=== PATIENT | female | born 1975 | race Caucasian/White ===

== ENCOUNTER 2016-06-11 16:20 | Emergency (ER) | payer OTHER ==
[2016-06-11] MEDS ORDERED: PROMETHAZINE HCL 25 MG TABLET PO ONE (17:24)
[2016-06-11] MEDS ORDERED: IBUPROFEN 600 MG TABLET PO ONE (17:25)
[2016-06-11] MEDS ORDERED: HYDROMORPHONE HCL 2 MG TABLET PO ONE (17:25)
--- NOTE | 2016-06-11 17:31 | ER Document Report ---
ED Medical Screen (RME) - General Chief Complaint: Abdominal Pain Stated Complaint: ABDOMINAL PAIN Notes: Patient says that she's been having problems with a UTI for a couple of weeks. She had burning and discomfort and urgency urination and went to a local urgent care on May 30. She was diagnosed with UTI and given a prescription for an antibiotic to take twice a day for 3 days. She finished the antibiotic and her symptoms improved, but today, she went to the restroom. She noted some burning with urination on Tuesday and then today she was walking along, when she was suddenly hit with a pain in the right lower pelvic region which "dropped me to my knees". She is still complaining of severe pain in that right lower pelvic region. Patient is not aware of any fever. Has not had any vomiting or diarrhea. LMP May 22. On no control. PMH: Hypertension, NIDDM, no surgeries. TRAVEL OUTSIDE OF THE [place] IN LAST 30 DAYS: No - Related Data Allergies/Adverse Reactions: No Known Allergies Allergy (Verified 06/11/16 16:24) Past Medical History - Past Medical History Cardiac Medical History: Reports: Hx Hypertension Endocrine Medical History: Denies: Hx Diabetes Mellitus Type 2 Renal/ Medical History: Denies: Hx Ovarian Cysts, Hx Peritoneal Dialysis GI Medical History: Reports: Hx Gastroesophageal Reflux Disease Past Surgical History: Reports: Hx Tonsillectomy - Immunizations Immunizations up to date: Yes Hx Diphtheria, Pertussis, Tetanus Vaccination: Yes Physical Exam - Vital signs Vitals: Temp Pulse Resp BP Pulse Ox 97.8 F 98 20 161/89 H 95 06/11/16 16:25 06/11/16 16:25 06/11/16 16:25 06/11/16 16:25 06/11/16 16:25 Course - Vital Signs Vital signs: Temp Pulse Resp BP Pulse Ox 97.8 F 98 20 161/89 H 95 06/11/16 16:25 06/11/16 16:25 06/11/16 16:25 06/11/16 16:25 06/11/16 16:25
[2016-06-11 17:46] LABS: ABSOLUTE BASOPHILS # (AUTO) 0.1 10^3/uL (0.0-0.2); ABSOLUTE EOSINOPHILS # (AUTO) 0.1 10^3/uL (0.0-0.6); ABSOLUTE LYMPHOCYTES (AUTO) 1.4 10^3/uL (0.5-4.7); ABSOLUTE MONOCYTES (AUTO) 0.5 10^3/uL (0.1-1.4); ABSOLUTE NEUT (AUTO) 8.5 10^3/uL (1.7-8.2); BASOPHILS % (AUTO) 1.2 % (0-2); EOSINOPHILS % (AUTO) 0.7 % (0-6); HEMATOCRIT 42.9 % (36.0-47.0); HEMOGLOBIN 14.3 g/dL (12.0-15.5); LYMPHOCYTES % (AUTO) 13.2 % (13-45); MEAN CORPUSCULAR HEMOGLOBIN 28.8 pg (27.0-33.4); MEAN CORPUSCULAR HGB CONC 33.3 g/dL (32.0-36.0); MEAN CORPUSCULAR VOLUME 86 fl (80-97); MONOCYTES % (AUTO) 4.9 % (3-13); RED BLOOD COUNT 4.97 10^6/uL (3.72-5.28); RED CELL DISTRIBUTION WIDTH 13.8 % (11.5-14.0); WHITE BLOOD COUNT 10.7 10^3/uL (4.0-10.5)
[2016-06-11 18:04] LABS: ALANINE AMINOTRANSFERASE 94 U/L (9-52); ALBUMIN 4.2 g/dL (3.5-5.0); ALKALINE PHOSPHATASE 123 U/L (38-126); ANION GAP 12 (5-19); ASPARTATE AMINO TRANSFERASE 81 U/L (14-36); BILIRUBIN,DIRECT 0.3 mg/dL (0.0-0.4); BILIRUBIN,TOTAL 0.8 mg/dL (0.2-1.3); BLOOD UREA NITROGEN 13 mg/dL (7-20); CALCIUM 9.8 mg/dL (8.4-10.2); CARBON DIOXIDE 28 mmol/L (22-30); CHLORIDE 102 mmol/L (98-107); CREATININE RESULT 0.62 mg/dL (0.52-1.25); GLUCOSE 194 mg/dL (75-110); LIPASE 458.1 U/L (23-300); POTASSIUM 4.2 mmol/L (3.6-5.0); SODIUM 142.3 mmol/L (137-145); TOTAL PROTEIN 7.8 g/dL (6.3-8.2)
[2016-06-11 18:26] LABS: AMORPHOUS SEDIMENT,URINE TRACE /HPF; APPEARANCE,URINE SLIGHTLY-CLOUDY; BILIRUBIN,URINE NEGATIVE (NEGATIVE); GLUCOSE, URINE NEGATIVE (NEGATIVE); KETONES,URINE NEGATIVE (NEGATIVE); LEUKOCYTE ESTERASE,URINE TRACE (NEGATIVE); NITRITE,URINE NEGATIVE (NEGATIVE); PROTEIN,URINE 30 mg/dL (NEGATIVE); URINE SPECIFIC GRAVITY 1.029; UROBILINOGEN,URINE NEGATIVE mg/dL (<2.0)
[2016-06-11] MEDS ORDERED: MORPHINE SULFATE 10 MG/ML INJ IV PRN (18:58)
[2016-06-11] MEDS ORDERED: KETOROLAC TROMETHAMINE INJ/PF 30 MG/1 ML SDV IV ONE (18:58)
--- NOTE | 2016-06-11 19:02 | ER Document Report ---
ED General - General Chief Complaint: Abdominal Pain Stated Complaint: ABDOMINAL PAIN Notes: Patient is a 40-year-old female with past medical history of morbid obesity and hypertension who presents with concerns of acute onset of right adnexal pain. States that she was treated for urinary tract infection several days ago and had resolution of her dysuria and suprapubic pain. However, states today she had an acute onset of focal right adnexal pain that she describes as severe, stabbing and constant. Nothing improves or worsens the pain. She denies any history of similar symptoms in the past. No prior history of nephrolithiasis, ovarian torsion. Her last menstrual period was the beginning of this month. She notes associated nausea without vomiting. No diarrhea, chest pain or shortness of breath. She has no prior abdominal surgeries. She denies any ongoing dysuria. She has not seen her primary care doctor regarding today's concerns. TRAVEL OUTSIDE OF THE [place] IN LAST 30 DAYS: No - Related Data Allergies/Adverse Reactions: No Known Allergies Allergy (Verified 06/11/16 16:24) Past Medical History - General Information source: Patient - Social History Smoking Status: Never Smoker Chew tobacco use (# tins/day): No Frequency of alcohol use: None Drug Abuse: None Lives with: Spouse/Significant other Family History: Hypertension Patient has suicidal ideation: No Patient has homicidal ideation: No - Past Medical History Cardiac Medical History: Reports: Hx Hypertension Endocrine Medical History: Reports: Hx Diabetes Mellitus Type 2 Renal/ Medical History: Denies: Hx Ovarian Cysts, Hx Peritoneal Dialysis GI Medical History: Reports: Hx Gastroesophageal Reflux Disease Past Surgical History: Reports: Hx Tonsillectomy - Immunizations Immunizations up to date: Yes Hx Diphtheria, Pertussis, Tetanus Vaccination: Yes Hx Pneumococcal Vaccination: 03/07/09 Review of Systems - Review of Systems Notes: Constitutional: Negative for fever. HENT: Negative for sore throat. Eyes: Negative for visual changes. Cardiovascular: Negative for chest pain. Respiratory: Negative for shortness of breath. Gastrointestinal: Positive for abdominal pain and nausea Genitourinary: Negative for dysuria. Musculoskeletal: Negative for back pain. Skin: Negative for rash. Neurological: Negative for headaches, weakness or numbness. 10 point ROS negative except as marked above and in HPI. Physical Exam - Vital signs Vitals: Temp Pulse Resp BP Pulse Ox 97.8 F 98 20 161/89 H 95 04/07/17 16:25 06/11/16 16:25 06/11/16 16:25 06/11/16 16:25 06/11/16 16:25 Interpretation: Hypertensive Notes: PHYSICAL EXAMINATION: GENERAL: Appears uncomfortable and in pain. Morbidly obese. HEAD: Atraumatic, normocephalic. EYES: Pupils equal round and reactive to light, extraocular movements intact, sclera anicteric, conjunctiva are normal. ENT: nares patent, oropharynx clear without exudates. Moist mucous membranes. NECK: Normal range of motion, supple without lymphadenopathy LUNGS: Breath sounds clear to auscultation bilaterally and equal. No wheezes rales or rhonchi. HEART: Regular rate and rhythm without murmurs ABDOMEN: Morbidly obese abdomen. Soft, focal right adnexal tenderness, normoactive bowel sounds. No guarding, no rebound. No masses appreciated. EXTREMITIES: Normal range of motion, no pitting or edema. No cyanosis. NEUROLOGICAL: No focal neurological deficits. Moves all extremities spontaneously and on command. PSYCH: Normal mood, normal affect. SKIN: Warm, Dry, normal turgor, no rashes or lesions noted. Course - Re-evaluation Re-evalutation: 06/11/16 19:01 Patient presents with acute onset of focal right lower adnexal tenderness on exam. Her abdominal exam is limited secondary to her morbid obesity with a BMI of 60. However, patient does have focal adnexal tenderness at time of palpation without any focal right lower quadrant tenderness. She has no right CVA tenderness. Urinalysis does show hematuria but is otherwise unremarkable. Primary concern at this time would be ovarian torsion. I have asked for a stat transvaginal ultrasound to better assess. Ultrasound was directly called and asked transfer this patient immediately for this ultrasound. If this demonstrates good flow to the right ovary will plan for a CT without contrast of the abdomen and pelvis of nephrolithiasis given her hematuria and the abrupt onset and severity of her pain. 06/11/16 22:04 Patient has had resolution of her abdominal pain at this time. Transvaginal ultrasound demonstrates flow to the right ovary and no obvious mass although it is a limited study secondary to patient's morbid obesity. A CT scan of the abdomen and pelvis without contrast was performed to evaluate for acute nephrolithiasis and was normal. Repeat abdominal exam now at this time without any focal tenderness. Again her history is not clinically consistent with acute appendicitis given the abrupt onset of her pain. Urinalysis is not consistent with acute pyelonephritis or an acute infection. I have instructed the patient to follow-up with her primary care doctor in the morning for recheck of her abdomen. I have reviewed with her that at this time not certain of the exact cause for her abdominal pain and that she should return to the emergency department immediately should she have recurrence of this pain, vomiting, fever or any other symptoms that are worrisome to her. - Vital Signs Vital signs: Temp Pulse Resp BP Pulse Ox 97.8 F 98 20 161/89 H 95 06/11/16 16:25 06/11/16 16:25 06/11/16 16:25 06/11/16 16:25 06/11/16 16:25 - Laboratory Result Diagrams: 06/11/16 17:30 06/11/16 17:30 Laboratory results interpreted by me: 06/11/16 06/11/16 06/11/16 17:30 17:30 17:30 WBC 10.7 H Seg Neutrophils % 80.0 H Absolute Neutrophils 8.5 H Glucose 194 H AST 81 H ALT 94 H Lipase 458.1 H Urine Protein 30 H Urine Blood LARGE H Ur Leukocyte Esterase TRACE H Discharge - Discharge Clinical Impression: Right sided abdominal pain Condition: Good Disposition: HOME, SELF-CARE Instructions: Observation for Appendicitis ([facility]) Additional Instructions: You have been seen in the Emergency Department (ED) for abdominal pain. Your evaluation did not identify a clear cause of your symptoms but was generally reassuring. Please follow up with your doctor as soon as possible regarding today's emergent visit and the symptoms that are bothering you. Return to the ED if your abdominal pain worsens or fails to improve, you develop bloody vomiting, bloody diarrhea, you are unable to tolerate fluids due to vomiting, fever greater than 101, or other symptoms that concern you. Referrals: SHADY ESPINO MD [Primary Care Provider] - Follow up tomorrow
[2016-06-11 22:38] VITALS: BP 149/82
== END 2016-06-11 22:27 | disposition home or self-care (01) ==
LOC: ER 16:20
DX: R10.9 Unspecified abdominal pain (principal); E66.01 Morbid (severe) obesity due to excess calories; I10 Essential (primary) hypertension; E11.9 Type 2 diabetes mellitus without complications; K21.9 Gastro-esophageal reflux disease without esophagitis; Z68.44 Body mass index [BMI] 60.0-69.9, adult
CPT/HCPCS: 99284; 96374; 96375; 36415; 83690; 84703; 85025; 80053; 81001; 76830; 93976; 74176; J1885; J2270

== ENCOUNTER → 2016-07-01 | Outpatient (CLI) | payer OTHER ==
[2016-07-01 11:43] LABS: ALANINE AMINOTRANSFERASE 53 U/L (9-52); ALBUMIN 3.9 g/dL (3.5-5.0); ALKALINE PHOSPHATASE 101 U/L (38-126); ANION GAP 12 (5-19); ASPARTATE AMINO TRANSFERASE 47 U/L (14-36); BILIRUBIN,DIRECT 0.4 mg/dL (0.0-0.4); BILIRUBIN,TOTAL 1.2 mg/dL (0.2-1.3); BLOOD UREA NITROGEN 12 mg/dL (7-20); CALCIUM 9.5 mg/dL (8.4-10.2); CARBON DIOXIDE 30 mmol/L (22-30); CHLORIDE 101 mmol/L (98-107); CREATININE RESULT 0.63 mg/dL (0.52-1.25); Direct HDL 62 mg/dL (>40); GLUCOSE 113 mg/dL (75-110); POTASSIUM 4.1 mmol/L (3.6-5.0); SODIUM 142.8 mmol/L (137-145); TOTAL PROTEIN 7.4 g/dL (6.3-8.2); TRIGLYCERIDES 83 mg/dL (<150)
[2016-07-01 11:54] LABS: DIRECT LDL 93 mg/dL (<100)
== END ==
LOC: OD 10:05
PROVIDERS: ATTEND Internal Medicine
DX: E11.9 Type 2 diabetes mellitus without complications (principal); E78.00 Pure hypercholesterolemia, unspecified
CPT/HCPCS: 36415; 80053; 80061

== ENCOUNTER 2016-11-24 05:00 | Emergency (ER) | payer OTHER ==
[2016-11-24 05:45] LABS: APPEARANCE,URINE SLIGHTLY-CLOUDY; BILIRUBIN,URINE NEGATIVE (NEGATIVE); GLUCOSE, URINE 50 mg/dL (NEGATIVE); KETONES,URINE NEGATIVE (NEGATIVE); LEUKOCYTE ESTERASE,URINE NEGATIVE (NEGATIVE); NITRITE,URINE NEGATIVE (NEGATIVE); PROTEIN,URINE 100 mg/dL (NEGATIVE); URINE SPECIFIC GRAVITY 1.005; UROBILINOGEN,URINE NEGATIVE mg/dL (<2.0)
[2016-11-24 05:54] LABS: ABSOLUTE BASOPHILS # (AUTO) 0.1 10^3/uL (0.0-0.2); ABSOLUTE EOSINOPHILS # (AUTO) 0.1 10^3/uL (0.0-0.6); ABSOLUTE LYMPHOCYTES (AUTO) 1.3 10^3/uL (0.5-4.7); ABSOLUTE MONOCYTES (AUTO) 0.4 10^3/uL (0.1-1.4); ABSOLUTE NEUT (AUTO) 5.9 10^3/uL (1.7-8.2); BASOPHILS % (AUTO) 0.8 % (0-2); EOSINOPHILS % (AUTO) 1.3 % (0-6); HEMATOCRIT 37.9 % (36.0-47.0); HEMOGLOBIN 13.1 g/dL (12.0-15.5); HGB HCT DIFFERENCE 1.4; LYMPHOCYTES % (AUTO) 16.7 % (13-45); MEAN CORPUSCULAR HEMOGLOBIN 29.9 pg (27.0-33.4); MEAN CORPUSCULAR HGB CONC 34.4 g/dL (32.0-36.0); MEAN CORPUSCULAR VOLUME 87 fl (80-97); MONOCYTES % (AUTO) 5.7 % (3-13); RED BLOOD COUNT 4.36 10^6/uL (3.72-5.28); RED CELL DISTRIBUTION WIDTH 14.4 % (11.5-14.0); SEGMENTED NEUTROPHILS % (AUTO) 75.5 % (42-78); WHITE BLOOD COUNT 7.8 10^3/uL (4.0-10.5)
[2016-11-24 06:19] LABS: ALANINE AMINOTRANSFERASE 32 U/L (9-52); ALBUMIN 3.8 g/dL (3.5-5.0); ALKALINE PHOSPHATASE 84 U/L (38-126); ANION GAP 12 (5-19); ASPARTATE AMINO TRANSFERASE 26 U/L (14-36); BILIRUBIN,DIRECT 0.3 mg/dL (0.0-0.4); BILIRUBIN,TOTAL 0.8 mg/dL (0.2-1.3); BLOOD UREA NITROGEN 13 mg/dL (7-20); CALCIUM 9.5 mg/dL (8.4-10.2); CARBON DIOXIDE 27 mmol/L (22-30); CHLORIDE 102 mmol/L (98-107); CREATININE RESULT 0.61 mg/dL (0.52-1.25); GLUCOSE 161 mg/dL (75-110); SODIUM 140.8 mmol/L (137-145); TOTAL PROTEIN 6.8 g/dL (6.3-8.2)
[2016-11-24] MEDS ORDERED: KETOROLAC TROMETHAMINE INJ/PF 30 MG/1 ML SDV IV ONE (06:47)
[2016-11-24] MEDS ORDERED: ONDANSETRON HCL INJ/PF 4 MG/2 ML SDV IV ONE (06:47)
[2016-11-24] MEDS ORDERED: NORMAL SALINE 1000 ML 1,000 ML IV ONE ×2 (06:47→08:34)
--- NOTE | 2016-11-24 07:02 | ER Document Report ---
ED GI/ - General Information source: Patient TRAVEL OUTSIDE OF THE [place] IN LAST 30 DAYS: No - HPI Patient complains to provider of: No: Abdominal pain Associated symptoms: Other - see above <ASHLEY INGRAM - Last Filed: 11/24/16 11:17> <NAHEED OTERO - Last Filed: 11/24/16 15:05> - General Chief Complaint: Nausea/Vomiting/Diarrhea Stated Complaint: LOWER BACK PAIN Time Seen by Provider: 11/24/16 06:46 Notes: Patient is a 41 year old female with a history of diabetes and hypertension who presents to the ED with complaints of nausea, vomiting diarrhea and right side back pain. Patient states the back pain started 2 days ago when she woke up. She denies dysuria or abdominal pain. She had a fever on Tuesday but has had one since. Patient states she has not been able to keep her medication down this morning. She last checked her blood sugar at 0145 and and it was 155. She is currently on her menstrual period (ASHLEY INGRAM) - Related Data Allergies/Adverse Reactions: No Known Allergies Allergy (Verified 11/24/16 05:08) Past Medical History - General Information source: Patient - Social History Smoking Status: Unknown if Ever Smoked Family History: Hypertension Patient has suicidal ideation: No Patient has homicidal ideation: No - Past Medical History Cardiac Medical History: Reports: Hx Hypertension Endocrine Medical History: Reports: Hx Diabetes Mellitus Type 2 GI Medical History: Reports: Hx Gastroesophageal Reflux Disease Past Surgical History: Reports: Hx Tonsillectomy - Immunizations Immunizations up to date: Yes Hx Diphtheria, Pertussis, Tetanus Vaccination: Yes Hx Pneumococcal Vaccination: 03/07/09 <ASHLEY INGRAM - Last Filed: 11/24/16 11:17> Review of Systems - Review of Systems Constitutional: See HPI. denies: Fever EENT: No symptoms reported Cardiovascular: No symptoms reported Respiratory: No symptoms reported Gastrointestinal: See HPI, Diarrhea, Nausea, Vomiting. denies: Abdominal pain Genitourinary: See HPI. denies: Dysuria Female Genitourinary: No symptoms reported, Last menstrual period - currently Musculoskeletal: See HPI, Joint pain Skin: No symptoms reported Hematologic/Lymphatic: No symptoms reported Neurological/Psychological: No symptoms reported <ASHLEY INGRAM - Last Filed: 11/24/16 11:17> Physical Exam - General General appearance: Alert, Other - apperas uncomfortable - HEENT Head: Normocephalic, Atraumatic Eyes: Normal Extraocular movements intact: Yes Pupils: PERRL Mucous membranes: Dry - Respiratory Respiratory status: No respiratory distress Breath sounds: Normal - Cardiovascular Rhythm: Regular Heart sounds: Normal auscultation Murmur: No - Abdominal Inspection: Normal Distension: No distension Tenderness: Nontender - Back Back: CVA tenderness - right CVA tenderness - Extremities General upper extremity: Normal inspection, Normal ROM General lower extremity: Normal inspection, Normal ROM - Neurological Neuro grossly intact: Yes - Psychological Associated symptoms: Normal affect, Normal mood - Skin Skin Temperature: Warm Skin Moisture: Dry Skin Color: Normal <ASHLEY INGRAM - Last Filed: 11/24/16 11:17> - Vital signs Vitals: Temp Pulse Resp BP Pulse Ox 98.4 F 80 20 141/75 H 98 11/24/16 05:07 11/24/16 05:07 11/24/16 05:07 11/24/16 05:07 11/24/16 05:07 Course - Laboratory Result Diagrams: 11/24/16 05:45 11/24/16 05:45 <ASHLEY INGRAM - Last Filed: 11/24/16 11:17> - Laboratory Result Diagrams: 11/24/16 05:45 11/24/16 05:45 - Diagnostic Test Radiology reviewed: Reports reviewed <NAHEED OTERO - Last Filed: 11/24/16 15:05> - Re-evaluation Re-evalutation: 11/24/16 Patient is a 41-year-old female who presents with nausea, vomiting, diarrhea and back pain. Patient feels better after fluids and medication. Able to tolerate p.o. No acute findings on CT. Patient does have her period which explains the blood in her urine. Feels better. Stable for discharge. Follow- up with PMD. Return if any worsening or concerning symptoms. (NAHEED OTERO) - Vital Signs Vital signs: Temp Pulse Resp BP Pulse Ox 98.0 F 78 18 142/76 H 99 11/24/16 09:17 11/24/16 09:17 11/24/16 09:17 11/24/16 09:17 11/24/16 09:17 - Laboratory Laboratory results interpreted by me: 11/24/16 11/24/16 11/24/16 05:15 05:45 05:45 RDW 14.4 H Glucose 161 H Urine Protein 100 H Urine Glucose (UA) 50 H Urine Blood LARGE H Discharge <ASHLEY INGRAM - Last Filed: 11/24/16 11:17> <NAHEED OTERO - Last Filed: 11/24/16 15:05> - Discharge Clinical Impression: Vomiting Qualifiers: Vomiting type: unspecified Vomiting Intractability: unspecified Nausea presence : with nausea Qualified Code(s): R11.2 - Nausea with vomiting, unspecified Diarrhea Qualifiers: Diarrhea type: unspecified type Qualified Code(s): R19.7 - Diarrhea, unspecified Condition: Stable Disposition: HOME, SELF-CARE Instructions: Diarrhea, Nonspecific ([facility]), Vomiting ([facility]) Prescriptions: Ondansetron [Zofran Odt 4 mg Tablet] 1 tab PO Q6HP PRN #15 tab.rapdis PRN Reason: For Nausea/Vomiting Forms: Return to Work Referrals: SHADY ESPINO MD [Primary Care Provider] - Follow up as needed Scribe Attestation: 11/24/16 15:05 I personally performed the services described in the documentation, reviewed and edited the documentation which was dictated to the scribe in my presence, and it accurately records my words and actions. (NAHEED OTERO) Scribe Documentation - Scribe Written by Sumae:: braydon Gabriel, 11/24/2016, 0735 acting as scribe for :: Scooter <ASHLEY INGRAM - Last Filed: 11/24/16 11:17>
--- NOTE | 2016-11-24 07:37 | RADIOLOGY REPORT (SQ) ---
EXAM DESCRIPTION: CT LTD RENAL STONE PROTOCOL ON COMPLETED DATE/TIME: 11/24/2016 7:20 am REASON FOR STUDY: evalaute for kidney stone COMPARISON: 04/13/2015. TECHNIQUE: CT scan of the abdomen and pelvis performed without intravenous or oral contrast. Images reviewed with lung, soft tissue, and bone windows. Reconstructed coronal and sagittal MPR images revi ewed. All images stored on PACS. All CT scanners at this facility use dose modulation, iterative reconstruction, and/or weight based d osing when appropriate to reduce radiation dose to as low as reasonably achievable (ALARA). [facility]: Dose Right [facility]: CareDose [facility]: Dose Right [facility]: Teradose 4D [facility]: [employer] RADIATION DOSE: Up-to-date CT equipment and radiation dose reduction techniques were employed. CTDIv ol: 19.2 mGy. DLP: 1135 mGy-cm.mGy. LIMITATIONS: None. FINDINGS: LOWER CHEST: Small emphysematous cysts of the left lower lobe. No nodules or infiltrates. NON-CONTRASTED LIVER, SPLEEN, ADRENALS: Evaluation limited by lack of IV contrast. No identified sign ificant masses. PANCREAS: No masses. No peripancreatic inflammatory changes. GALLBLADDER: No identified stones by CT criteria. No inflammatory changes to suggest cholecystitis. RIGHT KIDNEY AND URETER: No suspicious masses. Assessment limited by lack of IV contrast. No signif icant calcifications. No hydronephrosis or hydroureter. LEFT KIDNEY AND URETER: No suspicious masses. Assessment limited by lack of IV contrast. No signifi cant calcifications. No hydronephrosis or hydroureter. AORTA AND RETROPERITONEUM: No aneurysm. No retroperitoneal masses or adenopathy. BOWEL AND PERITONEAL CAVITY: No obvious masses or inflammatory changes. No free fluid. APPENDIX: Normal. PELVIS, BLADDER, AND ABDOMINAL WALL:7.1 cm umbilical fat only herniation, chronic. No free fluid. Bl adder normal. BONES: Moderate L5-S1 disc desiccation. Mild -moderate lower thoracic disc desiccation. OTHER: No other significant finding. IMPRESSION: No acute findings. 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 COMMENT: Quality ID # [id number]: Final reports with documentation of one or more dose reduction techniques (e.g., Automated exposure control, adjustment of the mA and/or kV according to patient size, use of iterative reconstruction technique) TECHNICAL DOCUMENTATION: JOB ID: [id number] [employer]- All Rights Reserved
[2016-11-24] MEDS ORDERED: MORPHINE SULFATE 10 MG/ML INJ IV ONE (08:24)
[2016-11-24 09:18] VITALS: BP 142/76
== END 2016-11-24 09:17 | disposition home or self-care (01) ==
LOC: ER 05:00
DX: R11.2 Nausea with vomiting, unspecified (principal); R19.7 Diarrhea, unspecified; M54.5 Low back pain; E11.9 Type 2 diabetes mellitus without complications; I10 Essential (primary) hypertension; M54.9 Dorsalgia, unspecified; R50.9 Fever, unspecified
CPT/HCPCS: 99284; 96361; 96374; 96375; 36415; 87086; 84703; 85025; 80053; 81001; 76380; J1885; J2270; J2405; J7030

== ENCOUNTER → 2018-06-22 | Outpatient (CLI) | payer OTHER ==
[2018-06-22 09:55] LABS: ABSOLUTE BASOPHILS # (AUTO) 0.1 10^3/uL (0.0-0.2); ABSOLUTE EOSINOPHILS # (AUTO) 0.1 10^3/uL (0.0-0.6); ABSOLUTE LYMPHOCYTES (AUTO) 1.1 10^3/uL (0.5-4.7); ABSOLUTE MONOCYTES (AUTO) 0.4 10^3/uL (0.1-1.4); ABSOLUTE NEUT (AUTO) 5.1 10^3/uL (1.7-8.2); BASOPHILS % (AUTO) 0.9 % (0-2); EOSINOPHILS % (AUTO) 1.1 % (0-6); HEMATOCRIT 38.4 % (36.0-47.0); LYMPHOCYTES % (AUTO) 16.9 % (13-45); MEAN CORPUSCULAR HGB CONC 33.9 g/dL (32.0-36.0); MEAN CORPUSCULAR VOLUME 85 fl (80-97); MONOCYTES % (AUTO) 6.4 % (3-13); PLATELET COUNT 226 10^3/uL (150-450); RED CELL DISTRIBUTION WIDTH 14.3 % (11.5-14.0); SEGMENTED NEUTROPHILS % (AUTO) 74.7 % (42-78); TOTAL CELLS COUNTED % (AUTO) 100 %; WHITE BLOOD COUNT 6.8 10^3/uL (4.0-10.5)
[2018-06-22 10:23] LABS: ALANINE AMINOTRANSFERASE 27 U/L (9-52); ALBUMIN 3.6 g/dL (3.5-5.0); ALKALINE PHOSPHATASE 85 U/L (38-126); ANION GAP 6 (5-19); ASPARTATE AMINO TRANSFERASE 28 U/L (14-36); BILIRUBIN,DIRECT 0.2 mg/dL (0.0-0.4); BILIRUBIN,TOTAL 0.8 mg/dL (0.2-1.3); BLOOD UREA NITROGEN 12 mg/dL (7-20); CALCIUM 9.7 mg/dL (8.4-10.2); CARBON DIOXIDE 29 mmol/L (22-30); CHLORIDE 104 mmol/L (98-107); CHOLESTEROL 182.58 mg/dL (0-200); GLUCOSE 137 mg/dL (75-110); SODIUM 139.3 mmol/L (137-145); TOTAL PROTEIN 7.1 g/dL (6.3-8.2); TRIGLYCERIDES 71 mg/dL (<150)
[2018-06-22 10:39] LABS: DIRECT LDL 100 mg/dL (<100)
[2018-06-22 10:43] LABS: FREE T4 (FREE THYROXINE) 1.06 ng/dL (0.78-2.19)
[2018-06-22 10:57] LABS: THYROID STIMULATING HORMONE 2.81 uIU/mL (0.47-4.68)
== END ==
LOC: OD 08:59
PROVIDERS: ATTEND Internal Medicine
DX: E11.9 Type 2 diabetes mellitus without complications (principal); I10 Essential (primary) hypertension; R63.5 Abnormal weight gain; Z79.899 Other long term (current) drug therapy
CPT/HCPCS: 36415; 80053; 80061; 84439; 84443; 85025

== ENCOUNTER 2018-09-07 08:01 | Emergency (ER) | payer OTHER ==
--- NOTE | 2018-09-07 09:03 | ER Document Report ---
ED Medical Screen (RME) - General Chief Complaint: Abscess Stated Complaint: POSSIBLE ABSCESS Time Seen by Provider: 09/07/18 09:00 Mode of Arrival: Ambulatory Information source: Patient Notes: 43-year-old female presents to ED for complaint of large abscess to the left lower abdomen states is been there several days and it needs to be I&D. Patient is alert oriented respirations regular and unlabored speaking in full sentences walks with a even steady gait. She has no past medical history and states she has no allergies. She denies drinking smoking or using any kind of recreational drugs. I have greeted and performed a rapid initial assessment of this patient. A comprehensive ED assessment and evaluation of the patient, analysis of test results and completion of medical decision making process will be conducted by an additional ED providers. Dictation of this chart was performed using voice recognition software; therefore, there may be some unintended grammatical errors. TRAVEL OUTSIDE OF THE [place] IN LAST 30 DAYS: No - Related Data Allergies/Adverse Reactions: No Known Allergies Allergy (Verified 11/24/16 05:08) Past Medical History - Past Medical History Cardiac Medical History: Reports: Hx Hypertension Endocrine Medical History: Reports: Hx Diabetes Mellitus Type 2 Renal/ Medical History: Denies: Hx Ovarian Cysts, Hx Peritoneal Dialysis GI Medical History: Reports: Hx Gastroesophageal Reflux Disease Past Surgical History: Reports: Hx Tonsillectomy - Immunizations Immunizations up to date: Yes Hx Diphtheria, Pertussis, Tetanus Vaccination: Yes Physical Exam - Vital signs Vitals: Temp Pulse Resp BP Pulse Ox 98.2 F 77 18 154/81 H 98 09/07/18 08:04 09/07/18 08:04 09/07/18 08:04 09/07/18 08:04 09/07/18 08:04 Course - Vital Signs Vital signs: Temp Pulse Resp BP Pulse Ox 98.2 F 77 18 154/81 H 98 09/07/18 08:04 09/07/18 08:04 09/07/18 08:04 09/07/18 08:04 09/07/18 08:04
[2018-09-07] MEDS ORDERED: HYDROCODONE/ACETAMINOPHEN 5-325 MG TABLET PO ONE (09:59)
[2018-09-07] MEDS ORDERED: CEPHALEXIN 500 MG CAPSULE PO ONE (09:59)
[2018-09-07] MEDS ORDERED: SULFAMETHOXAZOLE/TRIMETHOPRIM 800-160 MG TABLET PO ONE (09:59)
--- NOTE | 2018-09-07 10:02 | ER Document Report ---
ED Skin Rash/Insect Bite/Abscs - General Chief Complaint: Abscess Stated Complaint: POSSIBLE ABSCESS Time Seen by Provider: 09/07/18 09:00 Mode of Arrival: Ambulatory Notes: Pleasant 43-year-old female with [id number] diabetes mellitus presents to the emergency department with chief complaint of an abscess on her left lower abdomen that she first noticed on Tuesday. She said it is gotten worse over the last couple of days. She denies fevers or chills, nausea or vomiting, shortness of breath or chest pain, complains of warmth at the site, denies any purulent discharge. Does not have a history of abscesses. No drug allergies. Not an IV drug user. No other complaints TRAVEL OUTSIDE OF THE [place] IN LAST 30 DAYS: No - Related Data Allergies/Adverse Reactions: No Known Allergies Allergy (Verified 11/24/16 05:08) Past Medical History - General Information source: Patient - Social History Smoking Status: Never Smoker Chew tobacco use (# tins/day): No Drug Abuse: None Family History: Hypertension Patient has suicidal ideation: No Patient has homicidal ideation: No - Past Medical History Cardiac Medical History: Reports: Hx Hypertension Endocrine Medical History: Reports: Hx Diabetes Mellitus Type 2 Renal/ Medical History: Denies: Hx Ovarian Cysts, Hx Peritoneal Dialysis GI Medical History: Reports: Hx Gastroesophageal Reflux Disease Past Surgical History: Reports: Hx Tonsillectomy - Immunizations Immunizations up to date: Yes Hx Diphtheria, Pertussis, Tetanus Vaccination: Yes Hx Pneumococcal Vaccination: 03/07/09 Review of Systems - Review of Systems Constitutional: See HPI EENT: No symptoms reported Cardiovascular: See HPI Respiratory: See HPI Gastrointestinal: No symptoms reported Genitourinary: No symptoms reported Female Genitourinary: No symptoms reported Musculoskeletal: No symptoms reported Skin: See HPI Hematologic/Lymphatic: No symptoms reported Neurological/Psychological: No symptoms reported Physical Exam - Vital signs Vitals: Temp Pulse Resp BP Pulse Ox 98.2 F 77 18 154/81 H 98 09/07/18 08:04 09/07/18 08:04 09/07/18 08:04 09/07/18 08:04 09/07/18 08:04 - Notes Notes: PHYSICAL EXAMINATION: Reviewed vital signs and charting by RN GENERAL: Alert, interacts well. No acute distress. HEAD: Normocephalic, atraumatic. EYES: Pupils equal and round. Extraocular movements intact. ENT: Oral mucosa moist, tongue midline. NECK: Full range of motion. Trachea midline. ABDOMEN: soft, non-tender. No distention. Bowel sounds present EXTREMITIES: Moves all 4 extremities spontaneously. No edema, No cyanosis. PSYCH: Normal affect, normal mood. SKIN: Warm, dry, normal turgor. Large abscess left lower quadrant of abdomen on patient's pannus with an area of fluctuance and surrounding erythema consistent with cellulitis. Course - Re-evaluation Re-evalutation: 09/07/18 10:25 Overall well-appearing and afebrile. Patient does have underlying cellulitis with an abscess that is indurated. When I assessed purulent and sanguinous exudate came from the wound spontaneously. Plan is to still perform an incision and drainage. Patient will receive Keflex and Bactrim here in the emergency department. 09/07/18 20:05 Incision and drainage performed unable to express any more purulent discharge. Patient tolerated procedure well. - Vital Signs Vital signs: Temp Pulse Resp BP Pulse Ox 97.4 F 64 16 157/81 H 99 09/07/18 11:58 09/07/18 11:58 09/07/18 11:58 09/07/18 11:58 09/07/18 11:58 Discharge - Discharge Clinical Impression: Abscess Cellulitis Qualifiers: Site of cellulitis: trunk Site of cellulitis of trunk: unspecified site Qualified Code(s): L03.319 - Cellulitis of trunk, unspecified Condition: Good Disposition: HOME, SELF-CARE Instructions: Abscess ([facility]), Cephalexin ([facility]), Oral Narcotic Medication ([facility]), Post Incision and Drainage, Trimethoprim-Sulfa ([facility]) Additional Instructions: You were seen for an abscess that required drainage. Please clean this area with soap and water twice daily and apply a topical antibiotic. Dress the area after each cleaning. The rash is likely due to infection of your skin called cellulitis. You need to take the antibiotics as prescribed. Do not stop even if the rash goes away until you have completed all the antibiotics. The area of redness was traced out here in the emergency department with a marking pen. You need to return to emergency department if the redness spreads outside of this area by more than 2 cm in any direction. You should also return if you develop fevers with temperature greater than 101, persistent vomiting, worsening pain, or have any other symptoms that are concerning to you, the pain at the site wo rsens, or you have any other symptoms that are concerning to you. Prescriptions: Cephalexin Monohydrate [Keflex 500 mg Capsule] 500 mg PO QID #28 capsule Sulfamethoxazole/Trimethoprim [Bactrim Ds Tablet] 1 each PO BID #14 tablet
[2018-09-07 11:59] VITALS: BP 157/81
== END 2018-09-07 11:59 | disposition home or self-care (01) ==
LOC: ER 08:01
DX: L02.211 Cutaneous abscess of abdominal wall (principal); L03.319 Cellulitis of trunk, unspecified; I10 Essential (primary) hypertension; E11.9 Type 2 diabetes mellitus without complications
CPT/HCPCS: 99283

== ENCOUNTER 2018-09-12 05:02 | Emergency (ER) | payer OTHER ==
[2018-09-12] MEDS ORDERED: ONDANSETRON HCL INJ/PF 4 MG/2 ML SDV IV ONE (05:39)
[2018-09-12] MEDS ORDERED: MORPHINE SULFATE 10 MG/ML INJ IV ONE (05:39)
--- NOTE | 2018-09-12 05:40 | ER Document Report ---
ED Medical Screen (RME) - General Chief Complaint: Nausea/Vomiting Stated Complaint: THROWING UP Time Seen by Provider: 09/12/18 05:34 Notes: 43-year-old female with a history of diabetes, chief complaint of pain to the left side of her lower abdomen, vomiting x3 today, and a fever yesterday. She states 4 days ago she had the area drained here, she is taking Bactrim and Keflex, she states she felt better for a couple of days and then started worsening yesterday. TRAVEL OUTSIDE OF THE [place] IN LAST 30 DAYS: No - Related Data Allergies/Adverse Reactions: No Known Allergies Allergy (Verified 09/12/18 05:14) Past Medical History - Past Medical History Cardiac Medical History: Reports: Hx Hypertension Endocrine Medical History: Reports: Hx Diabetes Mellitus Type 2 Renal/ Medical History: Denies: Hx Ovarian Cysts, Hx Peritoneal Dialysis GI Medical History: Reports: Hx Gastroesophageal Reflux Disease Past Surgical History: Reports: Hx Tonsillectomy - Immunizations Immunizations up to date: Yes Hx Diphtheria, Pertussis, Tetanus Vaccination: Yes Physical Exam - Vital signs Vitals: Temp Pulse Resp BP Pulse Ox 97.9 F 83 22 H 167/75 H 97 09/12/18 05:12 09/12/18 05:12 09/12/18 05:12 09/12/18 05:12 09/12/18 05:12 - Abdominal Tenderness: Tender - There is tenderness with erythema, induration, possible fluctuance over the left lower abdomen at the top of the pannus. Course - Re-evaluation Re-evalutation: I have greeted and performed a rapid initial assessment of this patient. A comprehensive ED assessment and evaluation of the patient, analysis of test results and completion of the medical decision making process will be conducted by additional ED providers. - Vital Signs Vital signs: Temp Pulse Resp BP Pulse Ox 97.9 F 83 22 H 167/75 H 97 09/12/18 05:12 09/12/18 05:12 09/12/18 05:12 09/12/18 05:12 09/12/18 05:12
[2018-09-12 06:11] LABS: ABSOLUTE EOSINOPHILS # (AUTO) 0.1 10^3/uL (0.0-0.6); ABSOLUTE LYMPHOCYTES (AUTO) 1.3 10^3/uL (0.5-4.7); ABSOLUTE MONOCYTES (AUTO) 0.4 10^3/uL (0.1-1.4); ABSOLUTE NEUT (AUTO) 4.7 10^3/uL (1.7-8.2); BASOPHILS % (AUTO) 0.7 % (0-2); EOSINOPHILS % (AUTO) 1.3 % (0-6); HEMATOCRIT 37.3 % (36.0-47.0); HEMOGLOBIN 12.5 g/dL (12.0-15.5); LYMPHOCYTES % (AUTO) 19.8 % (13-45); MEAN CORPUSCULAR HEMOGLOBIN 28.7 pg (27.0-33.4); MEAN CORPUSCULAR HGB CONC 33.4 g/dL (32.0-36.0); MEAN CORPUSCULAR VOLUME 86 fl (80-97); MONOCYTES % (AUTO) 6.3 % (3-13); PLATELET COUNT 261 10^3/uL (150-450); RED BLOOD COUNT 4.33 10^6/uL (3.72-5.28); RED CELL DISTRIBUTION WIDTH 14.7 % (11.5-14.0); SEGMENTED NEUTROPHILS % (AUTO) 71.9 % (42-78); TOTAL CELLS COUNTED % (AUTO) 100 %; WHITE BLOOD COUNT 6.5 10^3/uL (4.0-10.5)
[2018-09-12 06:28] LABS: ANION GAP 7 (5-19); BLOOD UREA NITROGEN 13 mg/dL (7-20); CALCIUM 9.3 mg/dL (8.4-10.2); CARBON DIOXIDE 27 mmol/L (22-30); CHLORIDE 103 mmol/L (98-107); GLUCOSE 168 mg/dL (75-110); POTASSIUM 4.2 mmol/L (3.6-5.0); SODIUM 137.4 mmol/L (137-145)
--- NOTE | 2018-09-12 06:57 | ER Document Report ---
ED General - General Chief Complaint: Nausea/Vomiting Stated Complaint: THROWING UP Time Seen by Provider: 09/12/18 05:34 TRAVEL OUTSIDE OF THE [place] IN LAST 30 DAYS: No - HPI Notes: Patient is a 43-year-old female that presents to the emergency department for chief complaint of nausea vomiting and abdominal pain. Patient reports left lower quadrant abscess that was incised and drained in the emergency room a few days ago has had increased drainage over the last 2 days. She states it is yellow appearing. She states the discharge is minimal in quantity. She does have pain over the area of the abscess in her left lower abdomen. She denies any other abdominal pain aside from the abscess. Patient states yesterday she had one episode of emesis and this morning she had one episode of emesis. She reports a fever yesterday of 101.0. Patient did take Tylenol for her fever which improved her symptoms. She denies any diarrhea. She denies any black or bloody stools or hematemesis. She denies any urinary frequency or dysuria. Past Medical History: Diabetes Past Surgical History: Reviewed in chart Social History: Denies drugs alcohol and tobacco Family History: Reviewed and noncontributory for presenting illness Allergies: Reviewed, see documented allergy list. REVIEW OF SYSTEMS: CONSTITUTIONAL : fever No chills No diaphoresis No recent illness EENT: No vision changes No congestion No sore throat CARDIOVASCULAR: No chest pain No palpitations RESPIRATORY: No shortness of breath No cough No difficulty breathing GASTROINTESTINAL: abdominal pain nausea vomiting No diarrhea GENITOURINARY: No dysuria No hematuria No difficulty urinating MUSCULOSKELETAL: No back pain No leg pain No arm pain SKIN: No rashes Abscess LYMPHATIC: No swollen, enlarged glands. NEUROLOGICAL: No lightheadedness No headache No weakness No paresthesias PSYCHIATRIC: No anxiety No depression PHYSICAL EXAMINATION: Vital signs reviewed, nursing noted reviewed. GENERAL: Well-appearing, obese and in no acute distress. HEAD: Atraumatic, normocephalic. EYES: Eyes appear normal, extraocular movements intact, sclera anicteric, conjunctiva are normal. ENT: nares patent, oropharynx clear without exudates. Moist mucous membranes. NECK: Normal range of motion, supple without lymphadenopathy LUNGS: Breath sounds clear to auscultation bilaterally and equal. No wheezes rales or rhonchi. HEART: Regular rate and rhythm without murmurs ABDOMEN: Soft, left lower abdominal tenderness localized to the abscess, no other apparent abdominal tenderness. No rebound, guarding, or rigidity. No masses appreciated. EXTREMITIES: Nontender, good range of motion, trace pretibial edema bilaterally NEUROLOGICAL: No focal neurological deficits. Moves all extremities spontaneously Motor and sensory grossly intact on exam. PSYCH: Tearful, normal affect. SKIN: Warm, Dry, normal turgor, 2.0 cm x 2.0 cm area of induration and erythema on the left lower abdomen with overlying open wound with good granulation tissue. No active drainage. No areas of fluctuance. - Related Data Allergies/Adverse Reactions: No Known Allergies Allergy (Verified 09/12/18 05:14) Past Medical History - Social History Smoking Status: Unknown if Ever Smoked Family History: Hypertension Patient has suicidal ideation: No Patient has homicidal ideation: No - Past Medical History Cardiac Medical History: Reports: Hx Hypertension Endocrine Medical History: Reports: Hx Diabetes Mellitus Type 2 Renal/ Medical History: Denies: Hx Ovarian Cysts, Hx Peritoneal Dialysis GI Medical History: Reports: Hx Gastroesophageal Reflux Disease Past Surgical History: Reports: Hx Tonsillectomy - Immunizations Immunizations up to date: Yes Hx Diphtheria, Pertussis, Tetanus Vaccination: Yes Hx Pneumococcal Vaccination: 03/07/09 Physical Exam - Vital signs Vitals: Temp Pulse Resp BP Pulse Ox 97.9 F 83 22 H 167/75 H 97 09/12/18 05:12 09/12/18 05:12 09/12/18 05:12 09/12/18 05:12 09/12/18 05:12 Course - Re-evaluation Re-evalutation: 09/12/18 06:57 Vitals reviewed. Nursing notes reviewed. Patient does have an area in her left lower quadrant consistent with cellulitis that has been previously incised and drained. I do not appreciate any areas of fluctuance. The wound is still open partially from her previous incision and drainage. There is good granulation tissue forming and she appears to be healing. She does have cellulitis present still and has 4 days left on her antibiotics. I encouraged her to continue taking her antibiotics as previously prescribed. At this point I feel incision and drainage is not indicated because of the lack of fluctuance. Patient did have lab work drawn today which shows no significant leukocytosis. She has no electrolyte derangement or renal insufficiency to suggest dehydration. Patient is otherwise well-appearing. She is tearful because she missed work and will be given a note for work today. Patient will follow with primary care as previously recommended. She will return for new or worsening symptoms. She is stable at discharge. Laboratory 09/12/18 09/12/18 09/12/18 05:59 05:59 05:59 WBC 6.5 RBC 4.33 Hgb 12.5 Hct 37.3 MCV 86 MCH 28.7 MCHC 33.4 RDW 14.7 H Plt Count 261 Seg Neutrophils % 71.9 Lymphocytes % 19.8 Monocytes % 6.3 Eosinophils % 1.3 Basophils % 0.7 Absolute Neutrophils 4.7 Absolute Lymphocytes 1.3 Absolute Monocytes 0.4 Absolute Eosinophils 0.1 Absolute Basophils 0.0 Sodium 137.4 Potassium 4.2 Chloride 103 Carbon Dioxide 27 Anion Gap 7 BUN 13 Creatinine 0.62 Est GFR ( Amer) > 60 Est GFR (Non-Af Amer) > 60 Glucose 168 H Calcium 9.3 Serum HCG, Qual NEGATIVE - Vital Signs Vital signs: Temp Pulse Resp BP Pulse Ox 97.9 F 83 22 H 167/75 H 97 09/12/18 05:12 09/12/18 05:12 09/12/18 05:12 09/12/18 05:12 09/12/18 05:12 - Laboratory Result Diagrams: 09/12/18 05:59 09/12/18 05:59 Laboratory results interpreted by me: 09/12/18 09/12/18 05:59 05:59 RDW 14.7 H Glucose 168 H Discharge - Discharge Clinical Impression: Abdominal abscess Nausea and vomiting Qualifiers: Vomiting type: unspecified Vomiting Intractability: non-intractable Qualified Code(s): R11.2 - Nausea with vomiting, unspecified Condition: Stable Disposition: HOME, SELF-CARE Instructions: Abscess ([facility]), MRSA Cellulitis ([facility]) Additional Instructions: Please return to the emergency department if you have any worsening, or concern of your symptoms. Please return to the emergency department if you develop chest pain, difficulty breathing, severe abdominal pain, or ongoing vomiting. Please follow-up with your primary care physician in 2-3 days and any other recommended physicians. If prescribed, take all medications as directed. If you have any questions or concerns do not hesitate to return the emergency department for evaluation. Continue taking your antibiotics as prescribed Prescriptions: Ondansetron [Zofran Odt 4 mg Tablet] 1 tab PO Q4H PRN #15 tab.rapdis PRN Reason: For Nausea/Vomiting Forms: Return to Work Referrals: [facility] [Provider Group] - Follow up as needed
[2018-09-12 07:32] VITALS: BP 126/76
== END 2018-09-12 07:32 | disposition home or self-care (01) ==
LOC: ER 05:02
DX: L02.211 Cutaneous abscess of abdominal wall (principal); R11.2 Nausea with vomiting, unspecified; R10.9 Unspecified abdominal pain; R10.32 Left lower quadrant pain; Z98.890 Other specified postprocedural states; R50.9 Fever, unspecified; I10 Essential (primary) hypertension; E11.9 Type 2 diabetes mellitus without complications
CPT/HCPCS: 99283; 96374; 96375; 36415; 84703; 85025; 80048; J2270; J2405

== ENCOUNTER → 2019-10-04 | Outpatient (CLI) | payer OTHER ==
[2019-10-04 08:53] LABS: ABSOLUTE BASOPHILS # (AUTO) 0.1 10^3/uL (0.0-0.2); ABSOLUTE EOSINOPHILS # (AUTO) 0.1 10^3/uL (0.0-0.6); ABSOLUTE LYMPHOCYTES (AUTO) 1.4 10^3/uL (0.5-4.7); ABSOLUTE MONOCYTES (AUTO) 0.4 10^3/uL (0.1-1.4); ABSOLUTE NEUT (AUTO) 5.1 10^3/uL (1.7-8.2); BASOPHILS % (AUTO) 0.9 % (0-2); EOSINOPHILS % (AUTO) 1.4 % (0-6); HEMATOCRIT 40.7 % (36.0-47.0); HEMOGLOBIN 13.7 g/dL (12.0-15.5); LYMPHOCYTES % (AUTO) 19.8 % (13-45); MEAN CORPUSCULAR HEMOGLOBIN 29.4 pg (27.0-33.4); MEAN CORPUSCULAR HGB CONC 33.7 g/dL (32.0-36.0); MEAN CORPUSCULAR VOLUME 87 fl (80-97); MONOCYTES % (AUTO) 5.8 % (3-13); PLATELET COUNT 226 10^3/uL (150-450); RED BLOOD COUNT 4.66 10^6/uL (3.72-5.28); RED CELL DISTRIBUTION WIDTH 14.5 % (11.5-14.0); SEGMENTED NEUTROPHILS % (AUTO) 72.1 % (42-78); TOTAL CELLS COUNTED % (AUTO) 100 %; WHITE BLOOD COUNT 7.1 10^3/uL (4.0-10.5)
[2019-10-04 09:18] LABS: ALKALINE PHOSPHATASE 95 U/L (38-126); ANION GAP 6 (5-19); ASPARTATE AMINO TRANSFERASE 40 U/L (14-36); BILIRUBIN,TOTAL 0.6 mg/dL (0.2-1.3); BLOOD UREA NITROGEN 13 mg/dL (7-20); CALCIUM 9.6 mg/dL (8.4-10.2); CARBON DIOXIDE 30 mmol/L (22-30); CHLORIDE 101 mmol/L (98-107); GLUCOSE 171 mg/dL (75-110); TOTAL PROTEIN 7.4 g/dL (6.3-8.2); TRIGLYCERIDES 117 mg/dL (<150)
[2019-10-04 09:29] LABS: DIRECT LDL 113 mg/dL (<100)
== END ==
LOC: OD 07:59
PROVIDERS: ATTEND Internal Medicine
DX: E11.9 Type 2 diabetes mellitus without complications (principal); I10 Essential (primary) hypertension; E66.9 Obesity, unspecified; Z79.899 Other long term (current) drug therapy
CPT/HCPCS: 36415; 80053; 80061; 85025